=== PATIENT | female | born 1990 | race Caucasian/White ===

== ENCOUNTER 2017-01-06 22:16 | Emergency (ER) | payer SELFPAY ==
[~2017-01-06] VITALS: Ht 172.7 cm; Wt 81.6 kg
--- NOTE | 2017-01-06 23:06 | PHYS DOC ---
Adult General Chief Complaint Chief Complaint: ABDOMINAL PAIN IN HPI HPI Patient is a 26 year old female who is 4 para 0 who is currently 14 weeks with a twin gestation by ultrasound presents to the ER today complaining of abdominal cramping, back pain, dizziness has been on for approximately 1 day. Patient reports that the abdominal cramping today is much worse and has been. Patient denies any vaginal bleeding, vaginal discharge, patient denies any dysuria frequency or urgency, patient denies any other symptomatology at this time. Patient denies any cough cold Raynaud's. Patient denies any fevers shakes chills. Patient denies any chest pain or shortness of breath. She reports that her care has recently been switched over to [facility] and she has a high risk consultation on Sunday. Patient's last ultrasound was approximately 2 weeks ago and she reports no abnormalities noted at that time. She reports that they were told during the ultrasound that she has identical point gestation. Patient reports that she has been nauseous and has been taking Unisom for her nausea. Patient is requesting minimizing any medications that we give her. Patient reports that she has been trying not to take any Tylenol for headache secondary to concerns with her prior miscarriages. Patient reports she had dinner last night with some mild nausea but no emesis. Patient denies any hypertension diabetes liver lung or kidney problems. Patient does smoke denies alcohol or drugs. No known drug allergies Review of systems: Constitutional: Denies fever or chills Eyes: Denies change in visual acuity, redness, or eye pain HENT: Denies nasal congestion or sore throat Respiratory: Denies cough or shortness of breath All other review systems negative except as documented in the history of present illness portion. Physical exam: Constitutional: Well developed, well nourished, no acute distress, non-toxic appearance. HENT: Normocephalic, atraumatic, bilateral external ears normal, nose normal. Eyes: PERRLA, EOMI, conjunctiva normal, no discharge. Neck: Normal range of motion, no tenderness, supple, no stridor. Cardiovascular:Heart rate regular rhythm, Lungs & Thorax: Bilateral breath sounds clear to auscultation Abdomen: Bowel sounds normal, soft, mild diffuse tenderness to palpation, gravid abdomen, uterus palpable approximate 4-6 finger breath below umbilicus, no masses, no pulsatile masses. Skin: Warm, dry, no erythema, no rash. Back: No tenderness, no CVA tenderness. Extremities: No tenderness, no cyanosis, no clubbing, ROM intact, no edema. Neurologic: Alert and oriented X 3, normal motor function, normal sensory function, no focal deficits noted. Psychologic: Affect normal, judgement normal, mood normal. Patient's ER physical exam is significant for mildly tender abdomen to palpation. Patient's pelvic exam was unremarkable. Patient's os was closed with no vaginal bleeding. Patient did have a clear milky discharge in the vaginal vault which the patient reports his not new for her. Patient has no adnexal masses or tenderness. Patient had a 14 week gravid uterus. Patient is nontoxic appearing. Patient's abdominal exam soft nondistended no rebound or guarding no tenderness at McBurney's point. No Henao sign patient does not present with any signs or symptoms O be consistent with an acute surgical abdomen. Assessment and plan 26-year-old 4 para 0 who presents with abdominal pain. Patient is 14 weeks with twin gestation. Patient presents here today complaining of abdominal cramping. Plan: We will check her basic labs including CBC, CMP, hCG, type and screen. Patient has not been to the ER here before for this. We will obtain an ultrasound of the patient's per her request. Discussed with the residential appliance repair technician, preliminary ultrasound read does not reveal any acute pathology or abnormalities on the pregnancies. Assuming no gross abnormalities. Patient has an appointment scheduled with high wire artist on Sunday. Current Medications Current Medications Current Medications Medications (Trade) Dose Ordered Sig/Drea Start Time Stop Time Status Last Admin Dose Admin Ondansetron HCl (Zofran Odt) 4 mg 1X ONCE 01/07/17 01:30 01/07/17 01:31 Sodium Chloride 1,000 ml @ 1,000 mls/hr 1X ONCE 01/06/17 23:45 01/07/17 00:44 DC 01/06/17 23:54 1,000 MLS/HR Allergies Allergies Allergies Coded Allergies Type Severity Reaction Last Updated Verified Pertussis Vaccines Allergy Intermediate 01/06/17 Yes Current Patient Data Vital Signs Vital Signs Date Time Temp Pulse Resp B/P (MAP) Pulse Ox O2 Delivery O2 Flow Rate FiO2 01/07/17 00:50 85 20 140/79 (99) 98 Room Air 01/06/17 22:40 98.6 98.6 Lab Values Laboratory Tests Test 01/06/17 22:39 01/06/17 23:40 Urine Collection Type Unknown Urine Color Yellow Urine Clarity Cloudy Urine pH 8.0 Urine Specific Sheldon <=1.005 Urine Protein Negative mg/dL (NEG-TRACE) Urine Glucose (UA) Negative mg/dL (NEG) Urine Ketones (Stick) Negative mg/dL (NEG) Urine Blood Negative (NEG) Urine Nitrite Negative (NEG) Urine Bilirubin Negative (NEG) Urine Urobilinogen Dipstick 0.2 mg/dL (0.2 mg/dL) Urine Leukocyte Esterase Negative (NEG) Urine RBC 0 /HPF (0-2) Urine WBC 0 /HPF (0-4) Urine Squamous Epithelial Cells Few /LPF Urine Amorphous Sediment Present /HPF Urine Bacteria 0 /HPF (0-FEW) Urine Mucus Slight /LPF POC Urine HCG, Qualitative Hcg positive (Negative) White Blood Count 7.6 x10^3/uL (4.0-11.0) Red Blood Count 4.14 x10^6/uL (3.50-5.40) Hemoglobin 13.0 g/dL (12.0-15.5) Hematocrit 37.5 % (36.0-47.0) Mean Corpuscular Volume 91 fL (79-100) Mean Corpuscular Hemoglobin 31 pg (25-35) Mean Corpuscular Hemoglobin Concent 35 g/dL (31-37) Red Cell Distribution Width 12.9 % (11.5-14.5) Platelet Count 272 x10^3/uL (140-400) Neutrophils (%) (Auto) 69 % (31-73) Lymphocytes (%) (Auto) 23 % (24-48) L Monocytes (%) (Auto) 7 % (0-9) Eosinophils (%) (Auto) 1 % (0-3) Basophils (%) (Auto) 1 % (0-3) Neutrophils # (Auto) 5.2 x10^3uL (1.8-7.7) Lymphocytes # (Auto) 1.7 x10^3/uL (1.0-4.8) Monocytes # (Auto) 0.5 x10^3/uL (0.0-1.1) Eosinophils # (Auto) 0.1 x10^3/uL (0.0-0.7) Basophils # (Auto) 0.0 x10^3/uL (0.0-0.2) Maternal Serum HCG Beta Subunit 49414 mIU/mL (0-5) H Sodium Level 137 mmol/L (136-145) Potassium Level 3.5 mmol/L (3.5-5.1) Chloride Level 102 mmol/L (98-107) Carbon Dioxide Level 23 mmol/L (21-32) Anion Gap 12 (6-14) Blood Urea Nitrogen 8 mg/dL (7-20) Creatinine 0.3 mg/dL (0.6-1.0) L Estimated GFR (Cockcroft-Gault) 266.9 BUN/Creatinine Ratio 27 (6-20) H Glucose Level 87 mg/dL (70-99) Calcium Level 10.1 mg/dL (8.5-10.1) Total Bilirubin 0.3 mg/dL (0.2-1.0) Aspartate Amino Transferase (AST) 35 U/L (15-37) Alanine Aminotransferase (ALT) 57 U/L (14-59) Alkaline Phosphatase 81 U/L (46-116) Total Protein 6.5 g/dL (6.4-8.2) Albumin 3.0 g/dL (3.4-5.0) L Albumin/Globulin Ratio 0.9 (1.0-1.7) L Laboratory Tests 01/06/17 23:40 Laboratory Tests 01/06/17 23:40 Microbiology 01/06/17 Wet Prep - Final, Complete EKG EKG [] Radiology/Procedures Radiology/Procedures [] Course & Med Decision Making Course & Med Decision Making Pertinent Labs and Imaging studies reviewed. (See chart for details) [facility] [address] [place], [place] [id number] IMAGING REPORT Signed PATIENT: MARANDA STEWART ACCOUNT: [id number] : 1990 LOCATION: ER AGE: 26 SEX: F EXAM STATUS: REG ER ORD. PHYSICIAN: ALECIA CASILLAS MD REASON: PAIN - twin gestation 14 weeks PROCEDURE: PREG MORE THAN OR EQ TO 14 WKS Obstetric ultrasound greater than 14 weeks HISTORY: Abdominal pain and TECHNIQUE: Transabdominal transducer with grayscale, M-mode Doppler and color Doppler sonography. Comparisons: None available at time of exam. FINDINGS: Intrauterine monochorionic monoamniotic twin gestation. Single anterior placenta. No placenta previa. Cervical length measures 3.3 cm although the cervix is poorly visualized due to shadowing from poor distention of the bladder. Right maternal ovary measures 3.0 x 1.4 x 1.5 cm. Left maternal ovary not visualized. Subjectively normal volume of amniotic fluid. Twin gestation described further below. Fetus A is to the right in cephalic position with estimated sonographic gestational age 15 weeks 2 days and date of delivery June 28, 2017. Heart rate 165 bpm. The age is too young for anatomic evaluation. Fetus A biparietal diameter 3.13 cm gestational age 15 weeks 6 days. Fetus A head circumference 10.74 cm gestational age 15 weeks 1 day. Fetus A abdominal circumference 8.99 cm gestational age 15 weeks 1 day. A femur length 1.69 cm gestational age 15 weeks 0 days. Head/abdominal circumference ratio 1.19. Fetus B is transverse cephalic. Estimated sonographic gestational age 15 weeks 4 days and date of delivery June 26, 2017. Heart rate 147 bpm. The age is too young for anatomic evaluation. Fetus B biparietal diameter 3.14 cm gestational age 15 weeks 6 days. B head circumference 11.04 cm gestational age 15 weeks 2 days. B abdominal circumference 9.46 cm gestational age 15 weeks 4 days. B femur length 1.85 cm gestational age 15 weeks 3 days. Head/abdominal circumference ratio of 1.17. IMPRESSION: Living intrauterine monochorionic monoamniotic twin gestation as described above. Electronically signed by: Thomas Vargas MD (01/07/2017 12:08 AM) [facility] DICTATED and SIGNED BY: TOHMAS VARGAS MD DATE: 01/07/17 0000 CC: ALECIA CASILLAS MD; HERACLIO VILLEGAS DO; UNKNOWN PCP NAME ~ On reevaluation, patient is resting comfortably. I did review patient's ultrasound and laboratory results, no concerning findings were identified. Patient states after receiving hydration via the IV she is feeling much better. We did discuss importance of staying well-hydrated during , as this can cause cramping. Patient states that she is taking Unasyn and vitamin B6 for nausea, we did discuss benefits versus risk of adding an antiemetic, patient is agreeable to trialing Zofran, she does have an appointment to follow-up with her high wire artist provider on Sunday, and has an ultrasound scheduled for next Sunday. Discussed with patient at this time there is no evidence of any concerning findings, we did discuss concerning symptoms that would prompt return to the ED and importance of follow-up. Patient voiced understanding and agreement, was discharged home in stable condition with prescription for Zofran , to follow-up as stated, to continue vitamins, and to return to the ED if any new or concerning symptoms develop. Dragon Disclaimer Dragon Disclaimer This electronic medical record was generated, in whole or in part, using a voice recognition dictation system. Departure Impression: Primary Impression: Abdominal pain during in second trimester Disposition: HOME, SELF-CARE Condition: IMPROVED Scripts Ondansetron Hcl (ZOFRAN) 4 Mg Tablet 4 MG PO PRN Q8HRS Y for NAUSEA/VOMITING, #14 TAB Prov: HERACLIO VILLEGAS DO 01/07/17 Departure Departure Impression: Primary Impression: Abdominal pain during in second trimester Disposition: HOME, SELF-CARE Condition: IMPROVED Scripts Ondansetron Hcl (ZOFRAN) 4 Mg Tablet 4 MG PO PRN Q8HRS Y for NAUSEA/VOMITING, #14 TAB Prov: HERACLIO VILLEGAS DO 01/07/17 ALECIA CASILLAS MD Jan 06, 2017 23:06 HERACLIO VILLEGAS DO Jan 07, 2017 01:13
[2017-01-06 23:10] LABS: BILIRUBIN,URINE NEGATIVE (NEG); GLUCOSE,URINE NEGATIVE (NEG); NITRITE,URINE NEGATIVE (NEG); PROTEIN,URINE NEGATIVE (NEG-TRACE); UROBILINOGEN,URINE 0.2 mg/dL (0.2 mg/dL)
[2017-01-06 23:18] LABS: BACTERIA,URINE 0 /HPF (0-FEW); RBC,URINE 0 /HPF (0-2); SQUAMOUS EPITHELIAL CELL,UR FEW /LPF; WBC,URINE 0 /HPF (0-4)
[2017-01-06] MEDS ORDERED: IV NORMAL SALINE 1000ML BAG 1,000 ML IV ONE (23:45)
[2017-01-07 00:01] LABS: BASO % 1 % (0-3); EOS % 1 % (0-3); HEMATOCRIT 37.5 % (36.0-47.0); LYMPH # 1.7 x10^3/uL (1.0-4.8); LYMPH % 23 % (24-48); MEAN CORPUSCULAR HEMOGLOBIN 31 pg (25-35); MEAN CORPUSCULAR HGB CONC 35 g/dL (31-37); MEAN CORPUSCULAR VOLUME 91 fL (79-100); MONO % 7 % (0-9); NEUT % 69 % (31-73); PLATELET COUNT 272 x10^3/uL (140-400); RED BLOOD COUNT 4.14 x10^6/uL (3.50-5.40); RED CELL DISTRIBUTION WIDTH 12.9 % (11.5-14.5); WHITE BLOOD COUNT 7.6 x10^3/uL (4.0-11.0)
--- NOTE | 2017-01-07 00:12 | RAD ---
Obstetric ultrasound greater than 14 weeks HISTORY: Abdominal pain and TECHNIQUE: Transabdominal transducer with grayscale, M-mode Doppler and color Doppler sonography. Comparisons: None available at time of exam. FINDINGS: Intrauterine monochorionic monoamniotic twin gestation. Single anterior placenta. No placenta previa. Cervical length measures 3.3 cm although the cervix is poorly visualized due to shadowing from poor distention of the bladder. Right maternal ovary measures 3.0 x 1.4 x 1.5 cm. Left maternal ovary not visualized. Subjectively normal volume of amniotic fluid. Twin gestation described further below. Fetus A is to the right in cephalic position with estimated sonographic gestational age 15 weeks 2 days and date of delivery June 28, 2017. Heart rate 165 bpm. The age is too young for anatomic evaluation. Fetus A biparietal diameter 3.13 cm gestational age 15 weeks 6 days. Fetus A head circumference 10.74 cm gestational age 15 weeks 1 day. Fetus A abdominal circumference 8.99 cm gestational age 15 weeks 1 day. A femur length 1.69 cm gestational age 15 weeks 0 days. Head/abdominal circumference ratio 1.19. Fetus B is transverse cephalic. Estimated sonographic gestational age 15 weeks 4 days and date of delivery June 26, 2017. Heart rate 147 bpm. The age is too young for anatomic evaluation. Fetus B biparietal diameter 3.14 cm gestational age 15 weeks 6 days. B head circumference 11.04 cm gestational age 15 weeks 2 days. B abdominal circumference 9.46 cm gestational age 15 weeks 4 days. B femur length 1.85 cm gestational age 15 weeks 3 days. Head/abdominal circumference ratio of 1.17. IMPRESSION: Living intrauterine monochorionic monoamniotic twin gestation as described above. Electronically signed by: Liang Vargas MD (01/07/2017 12:08 AM) [facility]
[2017-01-07 00:21] LABS: CALCIUM 10.1 mg/dL (8.5-10.1); CREATININE 0.3 mg/dL (0.6-1.0); GFR 266.9; POTASSIUM 3.5 mmol/L (3.5-5.1)
[2017-01-07 00:27] LABS: ALBUMIN/GLOBULIN RATIO 0.9 (1.0-1.7); TOTAL BILIRUBIN 0.3 mg/dL (0.2-1.0); TOTAL PROTEIN 6.5 g/dL (6.4-8.2)
[2017-01-07 00:50] VITALS: BP 140/79
[2017-01-07] MEDS ORDERED: ONDA4TAB7 PO (00:59)
[2017-01-07] MEDS ORDERED: ONDANSETRON ODT 4 MG TAB.RAPDIS. PO ONE (01:30)
== END 2017-01-07 01:14 | disposition home or self-care (01) ==
LOC: ER 22:16
DX: O26.892 Other specified pregnancy related conditions, second trimester (principal); R10.84 Generalized abdominal pain; R11.0 Nausea; Z3A.15 15 weeks gestation of pregnancy
CPT/HCPCS: 36415; 76805; 76810; 80053; 81001; 81025; 84702; 85025; 86900; 86901; 87491; 87591; 96360; 99285; J7030; Q0111